=== PATIENT | female | born 1970 | race Caucasian/White ===

== ENCOUNTER 2022-04-16 07:59 | Day surgery (SDC) | payer BC ==
[2022-04-11 15:09] VITALS: BMI 21.2
[2022-04-16] MEDS ORDERED: BUPIVACAINE HCL/PF 0.25% (2.5MG/ML) 10 ML VIAL ONE (08:20)
[2022-04-16] MEDS ORDERED: LIDOCAINE HCL 2% 100 MG/5 ML DISP.SYRIN ONE (09:09)
[2022-04-16] MEDS ORDERED: MIDAZOLAM HCL 2 MG/2 ML SINGLE DOSE VIAL ONE (09:10)
[2022-04-16] MEDS ORDERED: PROPOFOL 20 ML ONE (09:10)
[2022-04-16] MEDS ORDERED: ceFAZolin SODIUM 1 GM VIAL ONE (09:31)
[2022-04-16] MEDS ORDERED: KETOROLAC TROMETHAMINE 30 MG/1 ML VIAL ONE (10:03)
[2022-04-16] MEDS ORDERED: ONDANSETRON 4 MG/2 ML VIAL ONE ×2 (10:03→10:54)
[2022-04-16] MEDS ORDERED: BUPIVACAINE HCL/PF 0.25% (2.5MG/ML) 10 ML VIAL IJ ONE (10:14)
[2022-04-16] MEDS ORDERED: ONDANSETRON 4 MG/2 ML VIAL IVPUSH PRN (10:39)
[2022-04-16] MEDS ORDERED: oxyCODONE HCL 5 MG TABLET PO PRN ×2 (10:39)
[2022-04-16] MEDS ORDERED: PROMETHAZINE HCL 25 MG/1 ML VIAL IVPUSH PRN (10:39)
[2022-04-16] MEDS ORDERED: LACTATED RINGERS SOLUTION 1,000 ML IV SCH (10:45)
[2022-04-16] MEDS ORDERED: FENTANYL CITRATE/PF 50 MCG/ML VIAL ONE ×3 (10:54→11:18)
[2022-04-16] MEDS ORDERED: oxyCODONE HCL 5 MG TABLET ONE (11:52)
[2022-04-16 11:56] VITALS: TEMP 97.5
[2022-04-16 12:55] VITALS: BP 95/55; PULSE 68
[2022-04-17] MEDS ORDERED: LEVOTHYROXINE NA 112 MCG TABLET (FP) PO SCH (07:00)
[2022-04-17] MEDS ORDERED: valACYclovir HCL 500 MG TABLET (FP) PO SCH (10:00)
[2022-04-17] MEDS ORDERED: SERTRALINE HCL 50 MG TABLET (FP) PO SCH (10:00)
[2022-04-17] MEDS ORDERED: FAMOTIDINE 20 MG TABLET PO SCH (10:00)
== END 2022-04-16 13:54 | disposition home or self-care (01) ==
LOC: FASU 07:59
PROVIDERS: ATTEND Orthopaedic Surgery Orthopaedic Surgery of the Spine
PROC: 0JBD0ZZ Excision of Right Upper Arm Subcutaneous Tissue and Fascia, Open Approach (ICD-10-PCS; 2022-04-16)
PROC: 0L830ZZ Division of Right Upper Arm Tendon, Open Approach (ICD-10-PCS; principal; 2022-04-16 09:49)
DX: M77.11 Lateral epicondylitis, right elbow (principal)
CPT/HCPCS: 84703; 88304-TC; 94760

== ENCOUNTER 2022-11-05 08:51 | Day surgery (SDC) | payer OTHER ==
[2022-11-04 09:58] VITALS: BMI 21.1
[2022-11-05] MEDS ORDERED: ONDANSETRON 4 MG/2 ML VIAL IVPUSH PRN (11:14)
[2022-11-05] MEDS ORDERED: oxyCODONE HCL 5 MG TABLET PO PRN (11:14)
[2022-11-05] MEDS ORDERED: LACTATED RINGERS SOLUTION 1,000 ML IV SCH (11:15)
[2022-11-05] MEDS ORDERED: MIDAZOLAM HCL 2 MG/2 ML SINGLE DOSE VIAL ONE (11:21)
[2022-11-05] MEDS ORDERED: PROPOFOL 80 ML ONE (11:21)
[2022-11-05] MEDS ORDERED: ROPIVACAINE HCL 0.5% 30ML VIAL ONE (11:22)
[2022-11-05] MEDS ORDERED: PANTOPRAZOLE SODIUM 40 MG VIAL ONE (11:36)
[2022-11-05] MEDS ORDERED: ePHEDrine SULFATE 50 MG/1 ML AMPULE ONE (12:26)
[2022-11-05] MEDS ORDERED: PROPOFOL 60 ML ONE (13:08)
[2022-11-05 14:29] VITALS: TEMP 97.8
[2022-11-05 15:18] VITALS: BP 116/68; PULSE 68; RESP 18
[2022-11-06] MEDS ORDERED: LEVOTHYROXINE NA 125 MCG TABLET (FP) PO SCH (07:00)
[2022-11-06] MEDS ORDERED: SERTRALINE HCL 50 MG TABLET (FP) PO SCH (10:00)
[2022-11-06] MEDS ORDERED: valACYclovir HCL 500 MG TABLET (FP) PO SCH (10:00)
[2022-11-06] MEDS ORDERED: FAMOTIDINE 20 MG TABLET PO SCH (10:00)
== END 2022-11-05 15:25 | disposition home or self-care (01) ==
LOC: FASU 08:51
PROVIDERS: ATTEND Orthopaedic Surgery Orthopaedic Surgery of the Spine
PROC: 0LQ10ZZ Repair Right Shoulder Tendon, Open Approach (ICD-10-PCS; 2022-11-05)
PROC: 0PB90ZZ Excision of Right Clavicle, Open Approach (ICD-10-PCS; principal; 2022-11-05 12:45)
PROC: 0MN10ZZ Release Right Shoulder Bursa and Ligament, Open Approach (ICD-10-PCS; 2022-11-05 12:45)
DX: M75.41 Impingement syndrome of right shoulder (principal); M75.121 Complete rotator cuff tear or rupture of right shoulder, not specified as traumatic
CPT/HCPCS: 84703; 88304-TC; 88311-TC; 94760

== ENCOUNTER 2024-02-23 09:52 | Day surgery (SDC) | payer BC ==
[2024-02-18 15:48] VITALS: BMI 21.9
[2024-02-23 11:11] VITALS: TEMP 97.1
[2024-02-23 11:47] VITALS: RESP 16
[2024-02-23 11:49] VITALS: BP 164/95; PULSE 78
== END 2024-02-23 11:45 | disposition home or self-care (01) ==
LOC: FASU-ENDO 09:52
PROVIDERS: ATTEND Internal Medicine Gastroenterology
PROC: 0DB68ZX Excision of Stomach, Via Natural or Artificial Opening Endoscopic, Diagnostic (ICD-10-PCS; 2024-02-23)
PROC: 0DB48ZX Excision of Esophagogastric Junction, Via Natural or Artificial Opening Endoscopic, Diagnostic (ICD-10-PCS; 2024-02-23)
PROC: 0DB98ZX Excision of Duodenum, Via Natural or Artificial Opening Endoscopic, Diagnostic (ICD-10-PCS; principal; 2024-02-23 10:22)
DX: K29.50 Unspecified chronic gastritis without bleeding (principal); K20.90 Esophagitis, unspecified without bleeding; R10.13 Epigastric pain
CPT/HCPCS: 81025; 88305-TC; 88342-TC